=== PATIENT | female | born 1960 | race Caucasian/White ===

== ENCOUNTER → 2019-03-28 | Outpatient (CLI) | payer BC ==
--- NOTE | 2019-03-28 13:14 | RADIOLOGY REPORT (SQ) ---
EXAM DESCRIPTION: UGI SERIES COMPLETED DATE/TIME: 03/28/2019 9:39 am REASON FOR STUDY: (Z98.84)BARIATRIC SURGERY STATUS;(K21.9)GASTRO-ESOPHAGEAL REFLUX DISEASE WI Z98.84 BARIATRIC SURGERY STATUS K21.9 GASTRO-ESOPHAGEAL REFLUX DISEASE WITHOUT ESOPHAGITIS COMPARISON: None. TECHNIQUE: Under fluoroscopic guidance, patient ingested thick and thin barium. Fluoroscopic spot im ages and routine radiographic images acquired and stored on PACS. 12 MM BARIUM TABLET GIVEN: Barium tablet passed easily through the esophagus and into the stomach wit hout delay. LIMITATIONS: None. FLUOROSCOPY TIME: FLUORO TIME: 2.1 minutes 16 images saved to PACS. FINDINGS: NEUROMUSCULAR COORDINATION OF SWALLOW: Normal. No aspiration. ESOPHAGEAL MOTILITY: Normal peristalsis. No esophageal spasm. ESOPHAGEAL MUCOSA: Normal mucosa without masses or ulceration. GASTRO-ESOPHAGEAL JUNCTION: Small hiatal hernia is present. Moderate gastroesophageal reflux demonst rated. STOMACH: Surgical changes consistent with gastric sleeve. No evidence for masses, lesions or other a bnormalities. GASTRIC OUTLET: No delay in emptying. Normal pylorus. DUODENAL BULB: Normal distention. No spasm or ulceration. DUODENUM: Mucosa normal. No extrinsic masses or malrotation. PROXIMAL JEJUNUM: Normal mucosal pattern. No dilatation, segmentation, strictures or masses. NON-GI TRACT STRUCTURES: No significant finding. OTHER: No other significant finding. IMPRESSION: SURGICAL CHANGES CONSISTENT WITH GASTRIC SLEEVE, WITHOUT ABNORMALITIES NOTED. SMALL HIA ROGELIO HERNIA AND MODERATE GASTROESOPHAGEAL REFLUX. COMMENT: NONE Quality ID [id number]: Final reports for procedures using fluoroscopy that document radiation exposure joel sara, or exposure time and number of fluorographic images (if radiation exposure indices are not avail able) TECHNICAL DOCUMENTATION: JOB ID: [id number] [employer]- All Rights Reserved Reading location - IP/workstation name: [email or web address]
== END ==
LOC: RAD 08:44
PROVIDERS: ATTEND Surgery
DX: K21.9 Gastro-esophageal reflux disease without esophagitis (principal); K44.9 Diaphragmatic hernia without obstruction or gangrene; Z98.84 Bariatric surgery status
CPT/HCPCS: 74247